=== PATIENT | female | born 1960 | race Asian ===

== ENCOUNTER 2023-05-31 14:53 | Outpatient (CLI) | payer MEDICAID | END 2023-05-31 23:59 | disposition home or self-care (01) | LOC: VAS 14:53 | PROVIDERS: ATTEND Nurse Practitioner Adult Health | DX: I12.9 Hypertensive chronic kidney disease with stage 1 through stage 4 chronic kidney disease, or unspecified chronic kidney disease (principal); N18.30 Chronic kidney disease, stage 3 unspecified | CPT/HCPCS: 93975 ==